=== PATIENT | male | born 1940 | race Caucasian/White ===

== ENCOUNTER 2016-12-06 20:10 | Inpatient (IN) | payer MEDICARE, MEDICAID ==
[2016-12-06] MEDS ORDERED: Sodium Chloride 0.9% 1,000 ML IV ONE ×2 (20:41→21:43)
--- NOTE | 2016-12-06 20:47 | ED Physician Chart ---
Chief Complaint/HPI - Patient Information Date Seen:: 12/06/16 Time Seen:: 20:35 Chief Complaint:: anorexia History of Present Illness:: has been anorexic and apparently increasingly agitated for the last two days. Allergies:: Allergies Allergy/AdvReac Type Severity Reaction Status Date / Time haloperidol [From Haldol] Allergy Verified 06/13/16 17:22 diphenhydramine HCl AdvReac Verified 06/13/16 13:57 [From Benadryl] haloperidol lactate AdvReac Verified 06/13/16 13:57 [From Haldol] Vitals:: Vital Signs - 8 hr 12/06/16 20:10 Temp 97.6 F HR 87 RR 19 BP 143/99 O2 Sat % 96 Historian:: EMS Review:: Nurse's Note Reviewed, Transfer documents Reviewed Review of Systems - Review of Systems General/Constitutional: No fever, No chills, Weakness, Loss of appetite Skin: No skin lesions Head: No headache Eyes: No loss of vision ENT: No earache Neck: Neck pain Cardio Vascular: No chest pain, No palpitations Pulmonary: No SOB GI: No nausea, No vomiting G/U: No dysuria, No hematuria Musculoskeletal: No bone or joint pain, No muscle pain Psychiatric: Prior psych history Hematopoietic: No bruising Allergic/Immuno: No urticaria Neurological: No syncope, No headache Past Medical History - Past Medical History Past Medical History: HTN, Arthritis, Dementia, Other (gout; ) Family History: Other (unavailable) Social History: Care Facility Surgical History: other (unavailable) Psychiatricy History: Depression, Dementia, Other (alzheimer's disease; psychosis) Medication: Reviewed Family Medical History - Family Member Mother History Unknown: Yes Ethnicity: Unknown Living Status: Unknown Hx Family Cancer: (unknown) Hx Family Coronary Artery Disease: (unknown) Hx Family Congestive Heart Failure: (unknown) Hx Family Hypertension: (unknown) Hx Family Stroke: (unknown) Hx Family Diabetes: (unknown) Hx Family Seizures: (unknown) Hx Family Dementia: (unknown) Hx Family AIDS: (unknown) Hx Family COPD: (unknown) Hx Family Hepatitis: (unknown) Hx Family Psychiatric Problems: (unknown) Hx Family Tuberculosis: (unknown) Physical Exam - Physical Examination General/Constitutional: No distress Other Gen/Cons comments:: chronically ill appearing Head: Atraumatic Other Eyes comments:: maintains eyes closed Skin: Nl inspection, No rash ENMT: External ears, nose nl Other ENMT comments:: edentulous Neck: No nuchal rigidity Respiratory: Nl effort/Exclusion, Clear to Auscultation Cardio Vascular: RRR, No murmur, gallop, rubs, NL S1 S2 GI: No tenderness/rebounding/guarding, No organomegaly, No hernia, Normal BS's, Nondistended, No mass/bruits, No McBurney tenderness : No CVA tenderness Extremities: No tenderness or effusion, Full ROM Neuro/Psych: No focal deficits Other Neuro/Psych comments:: no verbal response Misc: Normal back, No paraspinal tenderness Labs/Radiology/EKG Results - Lab Results Results: Laboratory Results - last 24 hr 12/06/16 12/06/16 20:50 20:50 WBC 8.5 D RBC 5.12 Hgb 15.4 Hct 48.5 D MCV 94.8 MCH 30.1 MCHC Differential 31.7 RDW 14.0 Plt Count 208 D MPV 10.4 Neutrophils % 61.6 Lymphocytes % 25.8 Monocytes % 8.8 Eosinophils % 3.2 Basophils % 0.6 Sodium 152 H Potassium 4.1 Chloride 119 H Carbon Dioxide 26.4 Anion Gap 10.7 BUN 56 H Creatinine 1.4 H Est GFR ( Amer) TNP Est GFR (Non-Af Amer) TNP BUN/Creatinine Ratio 40.0 Glucose 107 H Calcium 10.2 - Radiology Results Results: CXR negative for infiltrate; no cardiomegaly; prominent aortic arch - EKG Interpretations Rhythm: NSR [place]: normal Rate: rate 77 ED Septic Shock - . Is Septic Shock (SBP<90, OR Lactate>4 mmol\L) present?: No - <6hrs of presentation: Vital Signs: Vital Signs - 8 hr 12/06/16 20:10 Temp 97.6 F HR 87 RR 19 BP 143/99 O2 Sat % 96 Reassessment (Disposition) - Reassessment Reassessment Condition:: Unchanged - Diagnosis Diagnosis:: hypernatremic dehydration; dementia - Patient Disposition Admitted to:: Med/Surg Spoke to:: Sotero Atkins Admitting Medical Physician:: Sotero Atkins Condition at Disposition:: Stable, Unchanged
[2016-12-06 21:03] LABS: % BASOPHILS 0.6 % (0.0-2.0); % EOSINOPHILS 3.2 % (0.0-5.0); % LYMPHOCYTES 25.8 % (20.0-50.0); % MONOCYTES 8.8 % (2.0-10.0); % NEUTROPHILS 61.6 % (40.0-80.0); HEMOGLOBIN 15.4 gm/dL (12.6-17.4); MEAN CELL VOLUME 94.8 fl (80-99); MEAN CORPUSCULAR HEMOGLOBIN 30.1 pg (27.0-31.0); MEAN CORPUSCULAR HGB CONC 31.7 pg (28.0-36.0); MEAN PLATELET VOLUME 10.4 fl; NEUTROPHILE ABSOLUTE 5.2 Th/cmm (1.8-8.0); RED BLOOD COUNT 5.12 Mil/cmm (3.80-5.80)
[2016-12-06 21:09] LABS: HEMATOCRIT 48.5 % (39.0-49.0); WHITE BLOOD COUNT 8.5 Th/cmm (4.8-10.8)
[2016-12-06 21:10] LABS: PLATELET COUNT 208 Th/cmm (150-400)
[2016-12-06 21:14] LABS: ANION GAP 10.7 (7.0-16.0); BUN - UREA NITROGEN 56 mg/dL (7-25); CALCIUM SERUM 10.2 mg/dL (8.6-10.3); CARBON DIOXIDE 26.4 mEq/L (21.0-31.0); CHLORIDE 119 mEq/L (98-107); CREATININE - SERUM 1.4 mg/dL (0.7-1.3); GLUCOSE 107 mg/dL (70-105); POTASSIUM SERUM 4.1 mEq/L (3.5-5.1); SODIUM SERUM 152 mEq/L (136-145)
[2016-12-06] MEDS ORDERED: Maalox 30 mL Cup PO PRN (22:25)
[2016-12-06] MEDS ORDERED: Magnesium Hydroxide (MOM) 30 mL UDC PO PRN (22:25)
[2016-12-07] MEDS: D5-0.45NS w/20 mEq KCL 1,000 ML IV SCH (00:53)
[2016-12-07] MEDS: Escitalopram Oxalate 5 mg Tab PO SCH (09:37)
[2016-12-07] MEDS: Multivitamin w/ Minerals Tab PO SCH (09:37)
--- NOTE | 2016-12-07 11:13 | Diagnostic Imaging Report ---
Portable chest x-ray HISTORY: Shortness of breath The overall heart size is difficult to assess with portable technique in a poor inspiration. No acute focal pulmonary processes. Question calcified lymph nodes within the left hilar region that may be associated with old granulomatous disease. No pleural fluid. IMPRESSION: 1. No definite acute abnormalities
[2016-12-07] MEDS ORDERED: VTE Chemical Prophylaxis Screen/Admission MC PRN (14:12)
--- NOTE | 2016-12-07 14:37 | Admit Criteria Form ---
Admit Criteria Forms - Admit Criteria Diagnosis: HYPONATREMIA; HYPERNATREMIA; HYPOKALEMIA; HYPERKALEMIA; HYPOCALCEMIA; HYPERCALCEMIA Clinical Indications for Inpatient Care (Place 'X' for any and all applicable criteria): Ongoing inpatient care may be indicated for ANY ONE of the following [G](1)(2)(3 )(5): [ ]I. Hyponatremia with ANY ONE of the following: [ ]a) Sodium less than 130 mEq/L (mmol/L) (new) (6)(22) [ ]b) Sodium less than 135 mEq/L (mmol/L) with ANY ONE of the following: [ ]i) Severe medical etiology requiring inpatient management (eg, heart failure, hypovolemia) [ ]ii) Altered mental status [ ]iii) Seizures [X]II. Hypernatremia with ANY ONE of the following: [ ]a) Sodium greater than 155 mEq/L (mmol/L) [X]b) Sodium greater than 150 mEq/L (mmol/L) with ANY ONE of the following: [ ] i) Altered mental status [ ]ii) Seizures [ ]iii) Severe medical etiology (eg, hypovolemia, diabetes insipidus) [X]iv) Severe weakness [ ]v) Severe medical etiology (eg, hemolysis, infection, drug overdose) [ ]III. Hypokalemia with ANY ONE of the following: [ ]a) Potassium less than 2.5 mEq/L (mmol/L) despite outpatient and emergency treatment [ ]b) Potassium less than 3.0 mEq/L (mmol/L) with ANY ONE of the following: [ ]i) Weakness [ ]ii) Cardiac abnormality (eg, arrhythmia, conduction disturbance) [ ]iii) Cardiac ischemia [ ]iv) Ileus [ ]v) Ongoing medical cause requiring inpatient management. ( e.g., acute renal wasting, SIADH) [ ]vi) Other severe symptoms [ ] IV. Hyperkalemia with ANY ONE of the following: [ ]a) Potassium greater than 6.5 mEq/L (mmol/L) [ ]b) Potassium greater than 5 mEq/L (mmol/L) with ANY ONE of the following: [ ]i) Severe ECG findings [H] [ ]ii) Acute worsening of renal failure (creatinine greater than 2.5 mg/dL (221 micromoles/L) or significant elevation for age and size) [ ] V. Hypocalcemia with ANY ONE of the following: [ ]a) Calcium less than 7 mg/dL (1.75 mmol/L) despite outpatient and emergency treatment(19) [ ]b) Calcium less than 8 mg/dL (2 mmol/L) with significant symptoms or findings; examples include: [ ]i) Cardiac abnormality (eg, arrhythmia or conduction disturbance) [ ]ii) Altered mental status [ ]iii) Seizures [ ]iv) Breathing difficulty [ ]v) Muscle spasms [ ]. Hypercalcemia with ANY ONE of the following: [ ]a) Calcium greater than 14 mg/dL (3.5 mmol/L) [ ]b) Calcium greater than 12 mg/dL (3 mmol/L) with ANY ONE of the following: [ ]i) Significant dehydration or hypovolemia as indicated by ANY ONE of the following(2): [ ]1. Clinically significant dehydration as indicated by ANY ONE of the following: [ ]A. Acute loss of weight from baseline (5% of body weight in adults, 9% in pediatric patients) [ ]B. Hemodynamic instability [ ]C. Acute renal failure [ ]D. Serum sodium greater than 150 mEq/L (mmol/L) [ ]2) Dehydration that is persistent indicated by ALL of the following: [ ]A. Oral rehydration therapy not tolerated or insufficient to adequately correct dehydration [ ]B. Appropriate intravenous treatment (eg, fluids ) does not readily correct dehydration ie, after 12 to 24 hours of treatment) [ ]ii) Significant symptoms or findings; examples include: [ ]1) Altered mental status [ ]2) Cardiac abnormality (eg, arrhythmia, conduction disturbance) [ ]3) Cardiac abnormality (eg, arrhythmia, conduction disturbance) The original [email or web address] content created by [employer] has been revised. The portions of the content which have been revised are identified through the use of italic text or in bold, and [email or web address] has neither reviewed nor approved the modified material. All other unmodified content is copyright [facility] [email or web address] Please see references footnoted in the original [email or web address] edition 2016 Admit Criteria Met?: Yes
--- NOTE | 2016-12-07 21:17 | History & Physical ---
CHIEF COMPLAINT: Altered level of consciousness and dehydration. HISTORY OF PRESENT ILLNESS: The patient is a 76-year-old male with long history of hypertension and dementia who presented to the Emergency Room with altered level of consciousness, dehydration, evaluated by the ER physician, admitted to the hospital, started on IV fluid, resumed his medication and Psych evaluation ordered. No fever, no chills, no nausea and no vomiting. PAST MEDICAL HISTORY: Significant for hypertension and dementia. PAST SURGICAL HISTORY: No recent surgery. ALLERGIES: None. MEDICATIONS: Follow admission reconciliation. SOCIAL HISTORY: No smoking, alcohol or drugs. FAMILY HISTORY: Noncontributory. REVIEW OF SYSTEMS: IMMUNE SYSTEM: No history of chronic renal disorder. CARDIOVASCULAR SYSTEM: No coronary artery disease. He has history of hypertension. ENDOCRINE SYSTEM: No diabetes or thyroid problem. GASTROINTESTINAL SYSTEM: No upper or lower GI bleed. NEUROLOGICAL SYSTEM: He has dementia. PHYSICAL EXAMINATION: GENERAL: He is arousable, not coherent. VITAL SIGNS: Temperature is 98.2, heart rate 79 and blood pressure 140/90. HEENT: Normocephalic. Pupils reacting to light and accommodation. Sclerae clear. NECK: Supple. Negative for lymphadenopathy, JVD or bruit. CHEST: Bilateral normal. No rhonchi or wheezing. HEART: S1 and S2 normal. No murmur or gallop. ABDOMEN: Soft. Bowel sounds positive. EXTREMITIES: No edema. NEUROLOGIC: Arousable, not coherent. LABORATORY DATA: Sodium 152 and potassium 4. BUN is ____ and creatinine 0.4. White blood cell 8.5, hemoglobin 15.4, hematocrit 48.5 and platelet 208. ASSESSMENT: 1. Dehydration. 2. Acute renal injury. 3. Dementia. 4. Hypertension. 5. Hypernatremia. PLAN: The patient in the hospital under Dr. Atkins's service. We will start him on IV fluid with cardiac soft diet. The patient will resume his medication and psych evaluation. Dr. Pisano consulted on the case. JOB# [id number]
[2016-12-08] MEDS: Multivitamin w/ Minerals Tab PO SCH (09:43)
[2016-12-08] MEDS: Escitalopram Oxalate 5 mg Tab PO SCH (09:43)
--- NOTE | 2016-12-08 12:31 | Consultation ---
PSYCHIATRIC CONSULTATION AGE: 76. SEX: Male. PHYSICIAN: Dr. Atkins. NECKTIE OPERATOR POCKETS AND PIECES: Dr. Mejía. REASON FOR THE CONSULT: Evaluating psychotropic medications and agitation. HISTORY OF PRESENT ILLNESS: The patient with history of psychosis. The patient was admitted to the hospital. The patient has been having periods of agitation and irritability and Dr. Atkins asked me to evaluate the patient. The patient currently is calm and he seems to be slightly sedated and he did not answer any of my questions. The patient has been taking Lexapro and Seroquel with no side effects. He said no side effects except slight sedation. PAST MEDICAL HISTORY: The patient has history of psychosis and seems to have history of dementia. SOCIAL HISTORY: The patient lives in [facility]. No known alcohol or drug use. MENTAL STATUS EXAM: The patient appears older than his stated age. Slightly sedated. The patient did not answer questions regarding hallucinations or delusions regarding suicide or homicide. The patient is sedated and unable to assess his orientation or memory at this time. ASSESSMENT: PRIMARY DIAGNOSIS: Unspecified psychosis. TREATMENT PLAN: Continue Seroquel and Lexapro. We will reevaluate his condition. Thanks to Dr. Atkins and we will follow with you. JOB# [id number]
[2016-12-08] MEDS ORDERED: Haloperidol Lactate 5 mg/mL 1mL Vial IM ONE (13:30)
[2016-12-08] MEDS: D5-0.45NS w/20 mEq KCL 1,000 ML IV SCH (17:15)
[2016-12-09 07:28] LABS: % BASOPHILS 1.6 % (0.0-2.0); % EOSINOPHILS 7.9 % (0.0-5.0); % MONOCYTES 11.6 % (2.0-10.0); % NEUTROPHILS 44.9 % (40.0-80.0); HEMOGLOBIN 14.2 gm/dL (12.6-17.4); MEAN CELL VOLUME 94.1 fl (80-99); MEAN CORPUSCULAR HEMOGLOBIN 30.8 pg (27.0-31.0); MEAN CORPUSCULAR HGB CONC 32.8 pg (28.0-36.0); MEAN PLATELET VOLUME 10.8 fl; NEUTROPHILE ABSOLUTE 4.2 Th/cmm (1.8-8.0); PLATELET COUNT 178 Th/cmm (150-400); RED BLOOD COUNT 4.59 Mil/cmm (3.80-5.80); RED CELL DISTRIBUTION WIDTH 13.9 % (11.5-20.0); WHITE BLOOD COUNT 9.2 Th/cmm (4.8-10.8)
[2016-12-09 07:29] LABS: HEMATOCRIT 43.2 % (39.0-49.0)
[2016-12-09 07:46] LABS: ALKALINE PHOSPHATASE 93 U/L (34-104); ANION GAP 7.7 (7.0-16.0); BILIRUBIN,TOTAL 0.5 mg/dL (0.3-1.0); BUN - UREA NITROGEN 40 mg/dL (7-25); BUN/CREATININE RATIO 28.6; CALCIUM SERUM 9.5 mg/dL (8.6-10.3); CARBON DIOXIDE 27.5 mEq/L (21.0-31.0); CHLORIDE 121 mEq/L (98-107); CREATININE - SERUM 1.4 mg/dL (0.7-1.3); GLUCOSE 104 mg/dL (70-105); POTASSIUM SERUM 4.2 mEq/L (3.5-5.1); SGOT 25 U/L (13-39); SGPT/ALT 21 U/L (7-52); SODIUM SERUM 152 mEq/L (136-145)
[2016-12-09] MEDS: Escitalopram Oxalate 5 mg Tab PO SCH (10:28)
[2016-12-09] MEDS: Multivitamin w/ Minerals Tab PO SCH (10:30)
[2016-12-09] MEDS: D5-0.45NS w/20 mEq KCL 1,000 ML IV SCH (16:07)
[2016-12-10 07:34] LABS: ALKALINE PHOSPHATASE 89 U/L (34-104); BILIRUBIN,TOTAL 0.5 mg/dL (0.3-1.0); BUN - UREA NITROGEN 25 mg/dL (7-25); BUN/CREATININE RATIO 22.7; CALCIUM SERUM 9.1 mg/dL (8.6-10.3); CARBON DIOXIDE 28.3 mEq/L (21.0-31.0); CHLORIDE 113 mEq/L (98-107); CREATININE - SERUM 1.1 mg/dL (0.7-1.3); GLUCOSE 104 mg/dL (70-105); POTASSIUM SERUM 4.3 mEq/L (3.5-5.1); SGOT 17 U/L (13-39); SGPT/ALT 17 U/L (7-52); SODIUM SERUM 144 mEq/L (136-145)
[2016-12-10] MEDS: D5-0.45NS w/20 mEq KCL 1,000 ML IV SCH (08:43)
[2016-12-10] MEDS: Escitalopram Oxalate 5 mg Tab PO SCH (08:45)
[2016-12-10] MEDS: Multivitamin w/ Minerals Tab PO SCH (08:45)
--- NOTE | 2016-12-11 00:45 | Progress Notes ---
Case discussed with staff and the patient, reviewed records. This is a well known case to me, 76-year-old male, who was admitted on 12/06/2016 and initially seen by Dr. Mejía. The patient was diagnosed with psychosis, not otherwise specified. He was continued with the Seroquel and Lexapro. So far, he continues to be confused, unpredictable, and impulsive. He continues to have poor insight, no side effects with the medication, no sedation, no nausea, and the patient if continues to be agitated, may need to be re-transferred to the [facility] Thank you very much for allowing me to participate in the care of this most interesting gentleman. JOB# [id number]
--- NOTE | 2016-12-28 20:49 | Discharge Summary ---
FINAL DIAGNOSES: 1. Dehydration. 2. Acute renal injury. 3. Hypertension. 4. Hypernatremia. 5. Dementia. REVIEW OF HISTORY: The patient is a 76-year-old male with long history of hypertension, dementia, presented to the Emergency Room with altered level of consciousness. Initial workup was significant for dehydration, hypernatremia, acute renal injury, admitted to the hospital, started on IV fluid. PHYSICAL EXAMINATION: VITAL SIGNS: Temperature 98.2, heart rate 79. CHEST: Clear to auscultation. ABDOMEN: Soft, bowel sounds positive. LABORATORY DATA: Sodium 152, potassium 4. COURSE OF HOSPITALIZATION: During his hospitalization, the patient improved clinically and was seen by psychiatrist. On 12/09/2016, the patient was more awake, more alert, still confused, eating well. On 12/10/2016, the patient was clinically stable. DISPOSITION: The patient was transferred to [facility] to continue on his medication and diet. CONDITION ON DISCHARGE: Stable. MEDICATIONS: Follow discharge reconciliation. [facility]# [id number]
== END 2016-12-10 16:25 | DRG 682 ==
LOC: ER 20:10 → MSI 22:19
PROVIDERS: ADMIT Family Medicine; ATTEND Family Medicine
DX: N17.9 Acute kidney failure, unspecified (principal); G93.41 Metabolic encephalopathy; E87.0 Hyperosmolality and hypernatremia; E86.0 Dehydration; F29 Unspecified psychosis not due to a substance or known physiological condition; M19.90 Unspecified osteoarthritis, unspecified site; G30.9 Alzheimer's disease, unspecified; F02.80 Dementia in other diseases classified elsewhere, unspecified severity, without behavioral disturbance, psychotic disturbance, mood disturbance, and anxiety; M10.9 Gout, unspecified; F32.9 Major depressive disorder, single episode, unspecified; Z88.8 Allergy status to other drugs, medicaments and biological substances
CPT/HCPCS: 36415-UA; 71010-TC; 80048-TC; 80053-TC; 85025-TC; 90784; 93005; J1200; J1630; J1644; J2060; J7030; Z7610

== ENCOUNTER 2016-12-10 16:25 | Inpatient (IN) | payer MEDICARE, MEDICAID ==
[2016-12-10 17:31] VITALS: BP 142/79
[2016-12-10] MEDS ORDERED: Maalox 30 mL Cup PO PRN (19:56)
[2016-12-11 08:50] LABS: INR 1.1 (0.5-1.4); PROTHROMBIN TIME (TEST) 11.5 SECONDS (9.5-11.5)
[2016-12-11] MEDS: Multivitamin Tab PO SCH (10:31)
--- NOTE | 2016-12-11 12:00 | History & Physical ---
HISTORY OF PRESENT ILLNESS: The patient is a 76-year-old male with long history of dementia, hypertension, admitted to [facility] Medical Floor with dehydration, hyponatremia. The patient was stabilized clinically and [facility] for more evaluation and treatment. The patient still not eating well, otherwise, no fever, no chills, no shortness of breath. PAST MEDICAL HISTORY: Significant for hypertension and dementia. PAST SURGICAL HISTORY: No recent surgery. ALLERGIES: None. MEDICATIONS: Follow admission reconciliation. SOCIAL HISTORY: No smoking, alcohol or drugs. FAMILY HISTORY: Noncontributory. REVIEW OF SYSTEMS: RENAL SYSTEM: No history of chronic renal disorder. CARDIOVASCULAR SYSTEM: He has history of hypertension. ENDOCRINE SYSTEM: No diabetes or thyroid problem. GASTROINTESTINAL SYSTEM: No upper or lower gastrointestinal bleed. NEUROLOGICAL: He has history of dementia. PHYSICAL EXAMINATION: GENERAL: He is awake, arousable, not coherent. VITAL SIGNS: Temperature 98.1, heart rate 97, blood pressure 140/91. HEENT: Normocephalic. Pupils reacting to light and accommodation. Sclerae clear. NECK: Supple. Negative for lymphadenopathy, JVD or bruit. CHEST: Bilaterally normal. No rales, rhonchi or wheezing. HEART: S1, S2 normal. No murmur or gallop. ABDOMEN: Soft, bowel sounds positive. EXTREMITIES: No edema. BACK: No tenderness. SKIN: Intact. NEUROLOGIC: He is awake, is arousable, not coherent. He is moving upper and lower extremities. ASSESSMENT: 1. Hypertension. 2. Dementia. 3. Status post dehydration. 4. Degenerative joint disease. PLAN: The [facility] under Dr. Mejía's service. MEDICAL PROBLEMS ADDRESSED DURING HOSPITALIZATION: Dementia. MEDICAL PROBLEMS ADDRESSED AT DISCHARGE: Hypertension. The patient is medically stable for activity. Thank you, Dr. Mejía for asking me to see your patient. JOB# [id number]
--- NOTE | 2016-12-11 14:10 | History & Physical ---
IDENTIFYING INFORMATION: The patient is a 76-year-old male. CHIEF COMPLAINT: Not answer. HISTORY OF PRESENT ILLNESS: The patient transferred from the medical floor. The patient is a well known case to me as I have been seeing him at [place] with episodes of agitation, irritability, anger outbursts. He has been agitated and irritable, unable to participate in a meaningful conversation or make safe plan for self-care. He is unpredictable, impulsive. PAST PSYCHIATRIC HISTORY: Dementia, multiple prior admissions to this facility for similar reasons. MEDICAL HISTORY: Deferred to the medical doctor. ALLERGIES: THE PATIENT IS ALLERGIC TO HALDOL AND BENADRYL. MEDICATIONS: He is currently on Lexapro 50 mg a day, Aricept 10 mg at bedtime, Namenda 10 mg twice a day and Seroquel 50 mg twice a day. FAMILY AND SOCIAL HISTORY: The patient resides at nursing facility, is conserved. No further information is available. MENTAL STATUS EXAMINATION: The patient is appropriately dressed, not well groomed. His mood is depressed. Affect is constricted. Thoughts are concrete. He was unable to carry a conversation, demented, confused, unable to tell me the date, where he is, why he is here or carry on a reasonable conversation. His long and short term memory is poor. Insight and judgment impaired. IMPRESSION: AXIS I: Dementia, also psychosis, not otherwise specified. MEDICAL DIAGNOSIS: Deferred to the medical doctor. His assets, he is accepting. Negative poor coping. INITIAL TREATMENT PLAN: The patient will be back on medication. We will do group therapy, milieu therapy, individual therapy. ESTIMATED LENGTH OF STAY: 3-7 days. DISCHARGE CRITERIA: Decrease agitation, psychosis after discharge outpatient. [facility]# [id number]
[2016-12-12 07:44] LABS: HEMATOCRIT 46.6 % (39.0-49.0); HEMOGLOBIN 15.1 gm/dL (12.6-17.4); MEAN CELL VOLUME 95.1 fl (80-99); MEAN CORPUSCULAR HEMOGLOBIN 30.9 pg (27.0-31.0); MEAN CORPUSCULAR HGB CONC 32.5 pg (28.0-36.0); MEAN PLATELET VOLUME 11.2 fl; PLATELET COUNT 170 Th/cmm (150-400); RED CELL DISTRIBUTION WIDTH 13.5 % (11.5-20.0); WHITE BLOOD COUNT 8.2 Th/cmm (4.8-10.8)
[2016-12-12 07:53] LABS: ALKALINE PHOSPHATASE 93 U/L (34-104); ANION GAP 8.3 (7.0-16.0); BILIRUBIN,TOTAL 0.5 mg/dL (0.3-1.0); BUN - UREA NITROGEN 29 mg/dL (7-25); BUN/CREATININE RATIO 24.2; CALCIUM SERUM 9.4 mg/dL (8.6-10.3); CARBON DIOXIDE 27.1 mEq/L (21.0-31.0); CHLORIDE 111 mEq/L (98-107); CREATININE - SERUM 1.2 mg/dL (0.7-1.3); GLUCOSE 90 mg/dL (70-105); POTASSIUM SERUM 4.4 mEq/L (3.5-5.1); SGOT 24 U/L (13-39); SGPT/ALT 21 U/L (7-52); SODIUM SERUM 142 mEq/L (136-145)
[2016-12-12 08:22] LABS: BAND NEUTROPHILE 1 % (0-10); EOSINOPHIL 8 % (0-5); NEUTROPHILS 52 % (40-80); PLATELET ESTIMATE ADEQUATE (NORMAL); TOTAL CELLS COUNTED 100
[2016-12-12 08:23] LABS: PLATELET MORPHOLOGY GIANT PLATELETS SEEN (NORMAL)
[2016-12-12] MEDS: Multivitamin Tab PO SCH ×2 (08:54→09:09)
[2016-12-12] MEDS: Escitalopram Oxalate 5 mg Tab PO SCH (09:08)
--- NOTE | 2016-12-13 01:46 | Progress Notes ---
Case was discussed with staff of the patient, reviewed records. The patient continues to be confused, easily agitated, stays to himself, unable to participate in a meaningful conversation. He is sleeping well. He is eating well. He is compliant with the medication with no side effects, no sedation, no nausea, no extrapyramidal symptoms. He is on Seroquel 50 mg twice a day, that was increased by Dr. Mejía yesterday; and we will continue to work with the patient in group therapy, milieu therapy, adjust medication as needed. JOB# [id number]
[2016-12-13] MEDS: Escitalopram Oxalate 5 mg Tab PO SCH (10:05)
[2016-12-13] MEDS: Multivitamin Tab PO SCH (10:07)
--- NOTE | 2016-12-14 01:57 | Progress Notes ---
Case was discussed with staff of the patient. The patient continues to be confused, demented, irritable, easily agitated, needing redirection. Continues to have poor insight. Unable to participate in a conversation or make safe plan for self-care, was also refusing medications. Discussed with the staff of the patient ____ he is agitated and so far his lab work showed his sodium level was high on December 09, however, on it was low at 134. His blood sugar is high, BUN is high. His CBC shows high monocyte and eosinophil, the rest within normal range. His another lab work, CBC that shows only high eosinophil ____, the rest within normal range, and another lab work showed his CBC to be within normal range and his latest sodium level yesterday was 142 which is within normal range ____ deferred a decision on that to the medical doctor, and so far no side effects with the medication, no sedation, no nausea, no extrapyramidal symptoms. Since he is not taking his medications, I will not be able to adjust medications until he starts taking it, and we will continue to work with the patient in group therapy, milieu therapy, and adjust medication as needed. JOB# [id number]
[2016-12-14] MEDS: Escitalopram Oxalate 5 mg Tab PO SCH (08:53)
[2016-12-14] MEDS: Multivitamin Tab PO SCH (08:54)
--- NOTE | 2016-12-14 19:30 | Progress Notes ---
Case was discussed with staff of the patient, reviewed records. The patient has been refusing his medication. The patient has been unable to make safe plan for self-care, unpredictable, impulsive, and needing redirection. He is sleeping well and eating well. He is noncompliant with his medication. He does have a conservator and we will try to reach the conservator and in the process of sending paper work . The patient continues to be unpredictable and impulsive. We will ____ medication when we get conservatorship papers, and we will continue to work with the patient in group therapy, milieu therapy, and adjust the medication as needed. JOB# [id number]
[2016-12-15] MEDS: Multivitamin Tab PO SCH ×2 (08:46→09:02)
[2016-12-15] MEDS: Escitalopram Oxalate 5 mg Tab PO SCH ×2 (08:46→09:02)
--- NOTE | 2016-12-15 23:26 | Progress Notes ---
SUBJECTIVE: The patient seen, chart reviewed, discussed with staff. The patient is coming from [place], agitated, irritable, anger outbursts. Family is at bedside, happy with his progress, noted to be calmer, still with some outbursts, still impulsive, unpredictable, somewhat confused, disoriented, but eating better, still needing some redirection, taking his medications, sleeping fairly well. No medication side effects noted. Medications were reviewed. Labs were reviewed. ASSESSMENT: The patient remains symptomatic, still confused, disoriented, impulsive, unpredictable, history of violence. PLAN: Continue to monitor. Continue to encourage p.o. compliance, better appetite. We will continue to monitor. The patient is not safe for discharge. [facility]# [id number]
[2016-12-16] MEDS: Multivitamin Tab PO SCH (09:00)
[2016-12-16] MEDS: Escitalopram Oxalate 5 mg Tab PO SCH (09:00)
--- NOTE | 2016-12-17 07:23 | Progress Notes ---
SUBJECTIVE: The patient was seen, chart reviewed, discussed with staff. The patient still noted to be upset, refusing medications, refusing treatment, still agitated, irritable, still with angry outbursts, impulsive, unpredictable, poor insight. On [id number], the patient essentially refusing interview, not talking to me, still upset, angry, history of violence, labs were reviewed, medications were reviewed. ASSESSMENT: Discussed with staff. The patient is still unpredictable, still irritable, impulsive, not amenable to interview, erratic medication compliance, has been refusing medications. PLAN: Not safe for discharge. Continue to monitor, encourage medication compliance. [facility]# [id number]
[2016-12-17] MEDS: Escitalopram Oxalate 5 mg Tab PO SCH (09:27)
[2016-12-17] MEDS: Multivitamin Tab PO SCH (09:28)
--- NOTE | 2016-12-17 18:24 | Progress Notes ---
Case was discussed with staff of the patient and reviewed records. The patient is a total care. He is able, however, to feed himself, continues to have episodes of agitation and irritability, continues to have poor insight about the whole process, unable to verbalize a plan for safety or for self-care. He is compliant with the medication with no side effects, no sedation, no nausea, no extrapyramidal symptoms and we will continue to work with the patient in group therapy, milieu therapy and adjust medication as needed. JOB# [id number]
[2016-12-18] MEDS: Multivitamin Tab PO SCH (09:27)
[2016-12-18] MEDS: Escitalopram Oxalate 5 mg Tab PO SCH (09:29)
[2016-12-19] MEDS: Escitalopram Oxalate 5 mg Tab PO SCH (08:26)
[2016-12-19] MEDS: Multivitamin Tab PO SCH (08:26)
--- NOTE | 2016-12-20 04:15 | Progress Notes ---
Case discussed with the staff and the patient, reviewed records. The patient has been confused, demented; however, he is taking medications more on a regular basis. He is still unpredictable, impulsive, needing redirection, continues to have poor insight, unable to participate in a meaningful conversation and make safe plan for self-care. His Seroquel was increased to 50 mg twice a day with no side effects, no sedation, no nausea. However, the patient was not taking the medications for few days and now he is taking them on a regular basis with no side effects and we will continue to work with the patient in group therapy, milieu therapy, adjust medications as needed. JOB# [id number]
[2016-12-20] MEDS: Multivitamin Tab PO SCH (08:42)
[2016-12-20] MEDS: Escitalopram Oxalate 5 mg Tab PO SCH (08:42)
--- NOTE | 2016-12-21 06:02 | Progress Notes ---
Case was discussed with staff of the patient, reviewed records. The family wants the patient to go to specific place, and we are working on placement for him. The patient continues to be demented, confused, with episodes of agitation, irritability, unpredictable, impulsive. He is compliant with the medication with no side effects, no sedation, no nausea, no extrapyramidal symptoms. Working on placement, and we will continue to work with the patient in group therapy, milieu therapy, and adjust the medications as needed. JOB# [id number]
[2016-12-21] MEDS: Escitalopram Oxalate 5 mg Tab PO SCH (08:53)
[2016-12-21] MEDS: Multivitamin Tab PO SCH (08:54)
--- NOTE | 2016-12-21 14:31 | Progress Notes ---
Case discussed with staff of the patient, reviewed records. The patient continues to be easily agitated, irritable, continues to have poor insight. Unable to make safe plan for self-care. He is sleeping well, he can feed himself. No side effects with the medication, no sedation, no nausea, no extrapyramidal symptoms. We will continue to work with the patient in group therapy, milieu therapy, adjust the medication as needed. [facility]# [id number]
--- NOTE | 2016-12-22 02:50 | Progress Notes ---
Case was discussed with staff of the patient, reviewed records. The patient continues to isolate himself, getting easily agitated, at times needing redirection, yelling at times. He is unpredictable, impulsive, continues to have poor insight, unable to make safe plan for self-care. No side effects with the medication, no sedation, no nausea, no extrapyramidal symptoms. We will continue to work with the patient in group therapy, milieu therapy, and adjust the medication as needed. JOB# [id number]
[2016-12-22] MEDS: Escitalopram Oxalate 5 mg Tab PO SCH (09:56)
[2016-12-22] MEDS: Multivitamin Tab PO SCH (09:57)
--- NOTE | 2016-12-22 21:56 | Progress Notes ---
Case was discussed with staff of the patient, reviewed records. The patient continues to isolate himself. Continues to stay to himself. Continues to be unpredictable, impulsive, needing redirection, but in general, he is showing some progress. He has been compliant with the medication with no side effects, no sedation, no nausea and no extrapyramidal symptoms. I will be increasing his Lexapro to 20 mg a day to help with his depression, isolative behavior and no side effects with the medication, no sedation, no nausea and no extrapyramidal symptoms. We will continue to work with the patient in group therapy, milieu therapy and adjust the medication as needed. JOB# [id number]
[2016-12-23] MEDS: Multivitamin Tab PO SCH (08:53)
--- NOTE | 2016-12-23 21:44 | Progress Notes ---
Case was discussed with staff of the patient. The patient continues to be unpredictable with episodes of agitation, irritability, ____ prompted to eat and they have to help him with his ADLs. He is compliant with the medication with no side effects, no sedation, no nausea, tolerating increase in Lexapro with no side effects and he is currently on 20 mg a day and we will continue to work with the patient in group therapy, milieu therapy, adjust the medication as needed. JOB# [id number]
[2016-12-24] MEDS: Multivitamin Tab PO SCH (09:19)
--- NOTE | 2016-12-24 22:12 | Progress Notes ---
Case was discussed with staff of the patient, reviewed records. The patient continues to be unpredictable, impulsive, and continues to need redirection. He tolerated the increase in Lexapro with no side effects, no sedation, no nausea, and no extrapyramidal symptoms. His agitation is improving. He is easier to redirect. He is sleeping better and eating better. No side effects with the medication, no sedation, and no nausea. We will continue to work with the patient in group therapy, milieu therapy, and adjust the medications as needed. JOB# [id number]
[2016-12-25] MEDS: Multivitamin Tab PO SCH (09:16)
--- NOTE | 2016-12-25 19:30 | Discharge Summary ---
IDENTIFYING INFORMATION: The patient is a 76-year-old male. CHIEF COMPLAINT: No answer history of present transferred from the medical floor, the patient is a known history of being [place]. Has episodes of agitation, irritability, anger outbursts. He has been agitated, irritable, unable to participate in meaningful conversation or make safe plan for self-care, unpredictable, impulsive with a history of dementia with multiple prior admissions to this facility. COURSE IN THE HOSPITAL: The patient was started back on medication prior to admission, Aricept 10 mg at bedtime, Namenda 10 mg twice a day, Seroquel 50 mg; the dose was then increased to 50 mg twice a day and he was also on Lexapro and I did increase the dose over the course of the stay to 20 mg a day because of his isolative behavior, lack of cooperation. The patient was also continued with amlodipine and clonidine as needed and he progressively got better. He was no longer acting out or aggressive. He was sleeping well, eating well. So as he improved, we felt he was no longer acting out. He was easy to redirect. We felt he could be discharged and be managed at a lower level of care. FINAL DIAGNOSES: AXIS I: Psychosis, NOS and dementia. The patient will be going back to [place]. I will follow up with the patient there and the primary care physician. Expected outcome is stable if the patient complies with the above. JOB# [id number]
== END 2016-12-25 19:00 | DRG 884 ==
LOC: GERO 16:25
PROVIDERS: ADMIT Psychiatry & Neurology Psychiatry; ATTEND Psychiatry & Neurology Psychiatry
DX: F03.90 Unspecified dementia, unspecified severity, without behavioral disturbance, psychotic disturbance, mood disturbance, and anxiety (principal); E87.1 Hypo-osmolality and hyponatremia; I10 Essential (primary) hypertension; F29 Unspecified psychosis not due to a substance or known physiological condition; E86.0 Dehydration; M19.90 Unspecified osteoarthritis, unspecified site; Z88.8 Allergy status to other drugs, medicaments and biological substances
CPT/HCPCS: 36415-UA; 80053-TC; 85007-TC; 85027-TC; 85610-TC; J1644; Z7610